=== PATIENT | female | born 1940 | race Caucasian/White ===

== ENCOUNTER 2021-10-01 11:25 | Inpatient (IN) | payer MEDICARE ==
[2021-10-01] MEDS: Melatonin 3 MG Tab PO SCH (21:19)
[2021-10-01] MEDS: Simvastatin 10 MG Tab PO SCH (21:19)
[2021-10-01] MEDS: Acetaminophen 500 MG Tab PO SCH (21:19)
[2021-10-01] MEDS: oxyCODONE 5 MG Tab PO PRN (21:20)
[2021-10-02 07:09] LABS: CHLORIDE,CL 96 mmol/L (98-107); SODIUM,NA 130 mmol/L (136-145)
[2021-10-02 07:10] LABS: ANION GAP 11.4 mmol/L (5-15)
[2021-10-02] MEDS: Clopidogrel 75 MG Tab PO SCH (07:47)
[2021-10-02] MEDS: Acetaminophen 500 MG Tab PO SCH ×3 (07:47→19:52)
[2021-10-02] MEDS: Calcium Carbonate/Vitamin D3 1250 MG-5 MCG Tab PO SCH (07:47)
[2021-10-02] MEDS: Cholecalciferol (Vitamin D3) 25 MCG Tab PO SCH (07:48)
[2021-10-02] MEDS: oxyCODONE 5 MG Tab PO PRN ×2 (07:48→19:50)
[2021-10-02] MEDS: Atenolol 50 MG Tab PO SCH (07:49)
[2021-10-02] MEDS: amLODIPine 5 MG Tab PO SCH (07:49)
[2021-10-02] MEDS: Lisinopril 20 MG Tab PO SCH (07:49)
[2021-10-02] MEDS: OLODATEROL HCL INH SCH (08:01)
[2021-10-02] MEDS: [UNRECOGNIZED DRUG - OTHER] INH SCH (08:01)
[2021-10-02] MEDS: Potassium Chloride 10 MEQ Tab.ER PO SCH (09:00)
[2021-10-02] MEDS: Simvastatin 10 MG Tab PO SCH (19:49)
[2021-10-02] MEDS: Melatonin 3 MG Tab PO SCH (19:50)
[2021-10-03] MEDS: Lisinopril 20 MG Tab PO SCH (07:26)
[2021-10-03] MEDS: amLODIPine 5 MG Tab PO SCH (07:26)
[2021-10-03] MEDS: Atenolol 50 MG Tab PO SCH (07:26)
[2021-10-03] MEDS: Potassium Chloride 10 MEQ Tab.ER PO SCH (07:29)
[2021-10-03] MEDS: Clopidogrel 75 MG Tab PO SCH (07:29)
[2021-10-03] MEDS: Acetaminophen 500 MG Tab PO SCH ×3 (07:30→19:43)
[2021-10-03] MEDS: [UNRECOGNIZED DRUG - OTHER] INH SCH (07:30)
[2021-10-03] MEDS: OLODATEROL HCL INH SCH (07:30)
[2021-10-03] MEDS: oxyCODONE 5 MG Tab PO PRN ×2 (07:41→19:42)
[2021-10-03] MEDS: Calcium Carbonate/Vitamin D3 1250 MG-5 MCG Tab PO SCH (07:41)
[2021-10-03] MEDS: Cholecalciferol (Vitamin D3) 25 MCG Tab PO SCH (07:41)
[2021-10-03] MEDS: Melatonin 3 MG Tab PO SCH (19:43)
[2021-10-03] MEDS: Simvastatin 10 MG Tab PO SCH (19:43)
[2021-10-04] MEDS: [UNRECOGNIZED DRUG - OTHER] INH SCH (09:05)
[2021-10-04] MEDS: OLODATEROL HCL INH SCH (09:05)
[2021-10-04] MEDS: Lisinopril 20 MG Tab PO SCH (09:06)
[2021-10-04] MEDS: Cholecalciferol (Vitamin D3) 25 MCG Tab PO SCH (09:06)
[2021-10-04] MEDS: Atenolol 50 MG Tab PO SCH (09:06)
[2021-10-04] MEDS: Potassium Chloride 10 MEQ Tab.ER PO SCH (09:07)
[2021-10-04] MEDS: Clopidogrel 75 MG Tab PO SCH (09:08)
[2021-10-04] MEDS: oxyCODONE 5 MG Tab PO PRN ×2 (09:08→19:43)
[2021-10-04] MEDS: amLODIPine 5 MG Tab PO SCH (09:09)
[2021-10-04] MEDS: Calcium Carbonate/Vitamin D3 1250 MG-5 MCG Tab PO SCH (09:09)
[2021-10-04] MEDS: Acetaminophen 500 MG Tab PO SCH ×3 (09:10→19:44)
[2021-10-04] MEDS: Simvastatin 10 MG Tab PO SCH (19:43)
[2021-10-04] MEDS: Melatonin 3 MG Tab PO SCH (19:43)
[2021-10-05] MEDS: Calcium Carbonate/Vitamin D3 1250 MG-5 MCG Tab PO SCH (07:47)
[2021-10-05] MEDS: amLODIPine 5 MG Tab PO SCH (07:47)
[2021-10-05] MEDS: Lisinopril 20 MG Tab PO SCH (07:50)
[2021-10-05] MEDS: Clopidogrel 75 MG Tab PO SCH (07:50)
[2021-10-05] MEDS: Potassium Chloride 10 MEQ Tab.ER PO SCH (07:51)
[2021-10-05] MEDS: Atenolol 50 MG Tab PO SCH (07:51)
[2021-10-05] MEDS: Cholecalciferol (Vitamin D3) 25 MCG Tab PO SCH (07:51)
[2021-10-05] MEDS: Acetaminophen 500 MG Tab PO SCH (07:53)
[2021-10-05] MEDS: [UNRECOGNIZED DRUG - OTHER] INH SCH (07:54)
[2021-10-05] MEDS: OLODATEROL HCL INH SCH (07:54)
[2021-10-05] MEDS: oxyCODONE 5 MG Tab PO PRN ×2 (07:56→19:47)
[2021-10-05] MEDS: Simvastatin 10 MG Tab PO SCH (19:47)
[2021-10-05] MEDS: Melatonin 3 MG Tab PO SCH (19:47)
[2021-10-06] MEDS: Lisinopril 20 MG Tab PO SCH (08:30)
[2021-10-06] MEDS: Clopidogrel 75 MG Tab PO SCH (08:30)
[2021-10-06] MEDS: Calcium Carbonate/Vitamin D3 1250 MG-5 MCG Tab PO SCH (08:30)
[2021-10-06] MEDS: oxyCODONE 5 MG Tab PO PRN ×2 (08:31→21:07)
[2021-10-06] MEDS: Potassium Chloride 10 MEQ Tab.ER PO SCH (08:31)
[2021-10-06] MEDS: Atenolol 50 MG Tab PO SCH (08:32)
[2021-10-06] MEDS: Cholecalciferol (Vitamin D3) 25 MCG Tab PO SCH (08:32)
[2021-10-06] MEDS: amLODIPine 5 MG Tab PO SCH (08:33)
[2021-10-06] MEDS: [UNRECOGNIZED DRUG - OTHER] INH SCH (08:35)
[2021-10-06] MEDS: OLODATEROL HCL INH SCH (08:35)
[2021-10-06] MEDS: Simvastatin 10 MG Tab PO SCH (21:06)
[2021-10-06] MEDS: Melatonin 3 MG Tab PO SCH (21:07)
[2021-10-07] MEDS: Calcium Carbonate/Vitamin D3 1250 MG-5 MCG Tab PO SCH (07:55)
[2021-10-07] MEDS: Potassium Chloride 10 MEQ Tab.ER PO SCH (07:56)
[2021-10-07] MEDS: amLODIPine 5 MG Tab PO SCH (07:57)
[2021-10-07] MEDS: Lisinopril 20 MG Tab PO SCH (07:57)
[2021-10-07] MEDS: Cholecalciferol (Vitamin D3) 25 MCG Tab PO SCH (07:57)
[2021-10-07] MEDS: oxyCODONE 5 MG Tab PO PRN ×2 (07:57→19:21)
[2021-10-07] MEDS: Clopidogrel 75 MG Tab PO SCH (07:57)
[2021-10-07] MEDS: Atenolol 50 MG Tab PO SCH (07:58)
[2021-10-07] MEDS: [UNRECOGNIZED DRUG - OTHER] INH SCH (07:59)
[2021-10-07] MEDS: OLODATEROL HCL INH SCH (07:59)
[2021-10-07] MEDS: Melatonin 3 MG Tab PO SCH (19:21)
[2021-10-07] MEDS: Simvastatin 10 MG Tab PO SCH (19:21)
[2021-10-08 07:07] LABS: CHLORIDE,CL 101 mmol/L (98-107); SODIUM,NA 134 mmol/L (136-145)
[2021-10-08 07:08] LABS: ANION GAP 9.4 mmol/L (5-15)
[2021-10-08] MEDS: Potassium Chloride 10 MEQ Tab.ER PO SCH ×4 (07:17→12:54)
[2021-10-08] MEDS: Calcium Carbonate/Vitamin D3 1250 MG-5 MCG Tab PO SCH ×5 (07:17→12:57)
[2021-10-08] MEDS: Cholecalciferol (Vitamin D3) 25 MCG Tab PO SCH ×6 (07:17→12:56)
[2021-10-08] MEDS: oxyCODONE 5 MG Tab PO PRN ×2 (07:17→20:15)
[2021-10-08] MEDS: Clopidogrel 75 MG Tab PO SCH ×5 (07:17→12:57)
[2021-10-08] MEDS: Atenolol 50 MG Tab PO SCH ×5 (07:18→12:56)
[2021-10-08] MEDS: amLODIPine 5 MG Tab PO SCH ×7 (07:18→12:57)
[2021-10-08] MEDS: Lisinopril 20 MG Tab PO SCH ×6 (07:18→12:56)
[2021-10-08] MEDS: OLODATEROL HCL INH SCH ×5 (07:19→12:56)
[2021-10-08] MEDS: [UNRECOGNIZED DRUG - OTHER] INH SCH ×5 (07:19→12:56)
[2021-10-08] MEDS: Simvastatin 10 MG Tab PO SCH ×5 (11:05→20:15)
[2021-10-08] MEDS: Melatonin 3 MG Tab PO SCH ×7 (11:05→20:15)
[2021-10-08] MEDS: Acetaminophen 500 MG Tab PO SCH ×3 (12:52→12:58)
[2021-10-08] MEDS ORDERED: Acetaminophen 500 MG Tab PO SCH (13:00)
[2021-10-09] MEDS: Potassium Chloride 10 MEQ Tab.ER PO SCH (08:36)
[2021-10-09] MEDS: Clopidogrel 75 MG Tab PO SCH (08:36)
[2021-10-09] MEDS: Magnesium Oxide 400 MG Tab PO SCH (08:36)
[2021-10-09] MEDS: Calcium Carbonate/Vitamin D3 1250 MG-5 MCG Tab PO SCH (08:36)
[2021-10-09] MEDS: Cholecalciferol (Vitamin D3) 25 MCG Tab PO SCH (08:36)
[2021-10-09] MEDS: OLODATEROL HCL INH SCH (08:37)
[2021-10-09] MEDS: Lisinopril 20 MG Tab PO SCH (08:37)
[2021-10-09] MEDS: [UNRECOGNIZED DRUG - OTHER] INH SCH (08:37)
[2021-10-09] MEDS: Atenolol 50 MG Tab PO SCH (08:38)
[2021-10-09] MEDS: Acetaminophen 500 MG Tab PO PRN (08:44)
[2021-10-09] MEDS: amLODIPine 5 MG Tab PO SCH (10:24)
[2021-10-09] MEDS: Simvastatin 10 MG Tab PO SCH (20:06)
[2021-10-09] MEDS: Melatonin 3 MG Tab PO SCH (20:07)
[2021-10-09] MEDS: oxyCODONE 5 MG Tab PO PRN (20:07)
[2021-10-10] MEDS: Magnesium Oxide 400 MG Tab PO SCH (08:32)
[2021-10-10] MEDS: Potassium Chloride 10 MEQ Tab.ER PO SCH (08:32)
[2021-10-10] MEDS: [UNRECOGNIZED DRUG - OTHER] INH SCH (08:33)
[2021-10-10] MEDS: Acetaminophen 500 MG Tab PO PRN (08:33)
[2021-10-10] MEDS: OLODATEROL HCL INH SCH (08:33)
[2021-10-10] MEDS: Clopidogrel 75 MG Tab PO SCH (08:33)
[2021-10-10] MEDS: Cholecalciferol (Vitamin D3) 25 MCG Tab PO SCH (08:33)
[2021-10-10] MEDS: Calcium Carbonate/Vitamin D3 1250 MG-5 MCG Tab PO SCH (08:33)
[2021-10-10] MEDS: amLODIPine 5 MG Tab PO SCH (08:34)
[2021-10-10] MEDS: Lisinopril 20 MG Tab PO SCH (08:35)
[2021-10-10] MEDS: Atenolol 50 MG Tab PO SCH (08:35)
[2021-10-10] MEDS: Melatonin 3 MG Tab PO SCH (20:34)
[2021-10-10] MEDS: Simvastatin 10 MG Tab PO SCH (20:34)
[2021-10-10] MEDS: oxyCODONE 5 MG Tab PO PRN (20:37)
[2021-10-11] MEDS: Acetaminophen 500 MG Tab PO PRN ×2 (08:19→19:59)
[2021-10-11] MEDS: Cholecalciferol (Vitamin D3) 25 MCG Tab PO SCH (08:19)
[2021-10-11] MEDS: Magnesium Oxide 400 MG Tab PO SCH (08:19)
[2021-10-11] MEDS: Clopidogrel 75 MG Tab PO SCH (08:19)
[2021-10-11] MEDS: Calcium Carbonate/Vitamin D3 1250 MG-5 MCG Tab PO SCH (08:20)
[2021-10-11] MEDS: Potassium Chloride 10 MEQ Tab.ER PO SCH (08:20)
[2021-10-11] MEDS: amLODIPine 5 MG Tab PO SCH (08:20)
[2021-10-11] MEDS: Lisinopril 20 MG Tab PO SCH (08:20)
[2021-10-11] MEDS: Atenolol 50 MG Tab PO SCH (08:20)
[2021-10-11] MEDS: OLODATEROL HCL INH SCH (08:23)
[2021-10-11] MEDS: [UNRECOGNIZED DRUG - OTHER] INH SCH (08:23)
[2021-10-11] MEDS: Simvastatin 10 MG Tab PO SCH (19:59)
[2021-10-11] MEDS: Melatonin 3 MG Tab PO SCH (19:59)
[2021-10-12] MEDS: Calcium Carbonate/Vitamin D3 1250 MG-5 MCG Tab PO SCH (09:00)
[2021-10-12] MEDS: Atenolol 50 MG Tab PO SCH (09:00)
[2021-10-12] MEDS: Clopidogrel 75 MG Tab PO SCH (09:01)
[2021-10-12] MEDS: Potassium Chloride 10 MEQ Tab.ER PO SCH (09:01)
[2021-10-12] MEDS: amLODIPine 5 MG Tab PO SCH (09:02)
[2021-10-12] MEDS: Cholecalciferol (Vitamin D3) 25 MCG Tab PO SCH (09:02)
[2021-10-12] MEDS: Lisinopril 20 MG Tab PO SCH (09:02)
[2021-10-12] MEDS: OLODATEROL HCL INH SCH (09:03)
[2021-10-12] MEDS: [UNRECOGNIZED DRUG - OTHER] INH SCH (09:03)
[2021-10-12] MEDS: Magnesium Oxide 400 MG Tab PO SCH (09:03)
[2021-10-12] MEDS: Acetaminophen 500 MG Tab PO PRN ×2 (09:17→20:16)
[2021-10-12] MEDS: Simvastatin 10 MG Tab PO SCH (20:13)
[2021-10-12] MEDS: Melatonin 3 MG Tab PO SCH (20:13)
[2021-10-13] MEDS: Calcium Carbonate/Vitamin D3 1250 MG-5 MCG Tab PO SCH ×2 (07:53→08:02)
[2021-10-13] MEDS: Potassium Chloride 10 MEQ Tab.ER PO SCH ×2 (07:54→08:03)
[2021-10-13] MEDS: Cholecalciferol (Vitamin D3) 25 MCG Tab PO SCH ×2 (07:54→08:03)
[2021-10-13] MEDS: Acetaminophen 500 MG Tab PO PRN ×2 (07:54→20:21)
[2021-10-13] MEDS: Clopidogrel 75 MG Tab PO SCH ×2 (07:54→08:03)
[2021-10-13] MEDS: amLODIPine 5 MG Tab PO SCH ×2 (07:54→08:03)
[2021-10-13] MEDS: Atenolol 50 MG Tab PO SCH ×2 (07:55→08:03)
[2021-10-13] MEDS: Lisinopril 20 MG Tab PO SCH ×2 (07:55→08:03)
[2021-10-13] MEDS: Magnesium Oxide 400 MG Tab PO SCH ×2 (07:55→08:03)
[2021-10-13] MEDS: [UNRECOGNIZED DRUG - OTHER] INH SCH ×2 (07:56→08:03)
[2021-10-13] MEDS: OLODATEROL HCL INH SCH ×2 (07:56→08:03)
[2021-10-13] MEDS: Simvastatin 10 MG Tab PO SCH (20:22)
[2021-10-13] MEDS: Melatonin 3 MG Tab PO SCH (20:22)
[2021-10-14] MEDS: Magnesium Oxide 400 MG Tab PO SCH (10:44)
[2021-10-14] MEDS: Cholecalciferol (Vitamin D3) 25 MCG Tab PO SCH (10:45)
[2021-10-14] MEDS: Calcium Carbonate/Vitamin D3 1250 MG-5 MCG Tab PO SCH (10:46)
[2021-10-14] MEDS: Potassium Chloride 10 MEQ Tab.ER PO SCH (10:46)
[2021-10-14] MEDS: Atenolol 50 MG Tab PO SCH (10:47)
[2021-10-14] MEDS: amLODIPine 5 MG Tab PO SCH (10:48)
[2021-10-14] MEDS: Lisinopril 20 MG Tab PO SCH (10:49)
[2021-10-14] MEDS: Clopidogrel 75 MG Tab PO SCH ×2 (10:49→13:45)
[2021-10-14] MEDS: [UNRECOGNIZED DRUG - OTHER] INH SCH (10:51)
[2021-10-14] MEDS: OLODATEROL HCL INH SCH (10:51)
[2021-10-14] MEDS: Acetaminophen 500 MG Tab PO PRN ×2 (10:55→20:49)
[2021-10-14] MEDS: Melatonin 3 MG Tab PO SCH (20:49)
[2021-10-14] MEDS: Simvastatin 10 MG Tab PO SCH (20:49)
[2021-10-15] MEDS: OLODATEROL HCL INH SCH (09:17)
[2021-10-15] MEDS: [UNRECOGNIZED DRUG - OTHER] INH SCH (09:17)
[2021-10-15] MEDS: Cholecalciferol (Vitamin D3) 25 MCG Tab PO SCH (09:43)
[2021-10-15] MEDS: Magnesium Oxide 400 MG Tab PO SCH (09:43)
[2021-10-15] MEDS: Clopidogrel 75 MG Tab PO SCH (09:43)
[2021-10-15] MEDS: Calcium Carbonate/Vitamin D3 1250 MG-5 MCG Tab PO SCH (09:43)
[2021-10-15] MEDS: Atenolol 50 MG Tab PO SCH (09:44)
[2021-10-15] MEDS: Lisinopril 20 MG Tab PO SCH (09:44)
[2021-10-15] MEDS: amLODIPine 5 MG Tab PO SCH (09:44)
[2021-10-15] MEDS: Acetaminophen 500 MG Tab PO PRN ×2 (09:48→21:09)
[2021-10-15] MEDS: Melatonin 3 MG Tab PO SCH (21:09)
[2021-10-15] MEDS: Simvastatin 10 MG Tab PO SCH (21:09)
[2021-10-16 07:28] LABS: CHLORIDE,CL 100 mmol/L (98-107); SODIUM,NA 135 mmol/L (136-145)
[2021-10-16 07:29] LABS: ANION GAP 12.8 mmol/L (5-15)
[2021-10-16] MEDS: Calcium Carbonate/Vitamin D3 1250 MG-5 MCG Tab PO SCH (09:02)
[2021-10-16] MEDS: Lisinopril 20 MG Tab PO SCH (09:02)
[2021-10-16] MEDS: Cholecalciferol (Vitamin D3) 25 MCG Tab PO SCH (09:02)
[2021-10-16] MEDS: Atenolol 50 MG Tab PO SCH (09:03)
[2021-10-16] MEDS: Clopidogrel 75 MG Tab PO SCH (09:04)
[2021-10-16] MEDS: amLODIPine 5 MG Tab PO SCH (09:05)
[2021-10-16] MEDS: Magnesium Oxide 400 MG Tab PO SCH (09:05)
[2021-10-16] MEDS: OLODATEROL HCL INH SCH (09:06)
[2021-10-16] MEDS: [UNRECOGNIZED DRUG - OTHER] INH SCH (09:06)
[2021-10-16] MEDS: Acetaminophen 500 MG Tab PO PRN (09:08)
== END 2021-10-16 10:05 | disposition home health service (06) | DRG 560 ==
LOC: VM.MS 15:15
PROVIDERS: ADMIT Nurse Practitioner Family; ATTEND Nurse Practitioner Family
DX: S32.10XD Unspecified fracture of sacrum, subsequent encounter for fracture with routine healing (principal); E87.1 Hypo-osmolality and hyponatremia; Z86.73 Personal history of transient ischemic attack (TIA), and cerebral infarction without residual deficits; I10 Essential (primary) hypertension; E78.00 Pure hypercholesterolemia, unspecified; I65.23 Occlusion and stenosis of bilateral carotid arteries; K44.9 Diaphragmatic hernia without obstruction or gangrene; M81.0 Age-related osteoporosis without current pathological fracture; E78.5 Hyperlipidemia, unspecified; I73.9 Peripheral vascular disease, unspecified; J42 Unspecified chronic bronchitis; Z85.118 Personal history of other malignant neoplasm of bronchus and lung; Z87.891 Personal history of nicotine dependence; Z79.899 Other long term (current) drug therapy; Z79.01 Long term (current) use of anticoagulants
CPT/HCPCS: 36415; 80048; 83735; 85025; 97110-GO; 97110-GP; 97116-GP; 97161-GP; 97165-GO; 97535-GO; A9270-GY